=== PATIENT | female | born 1990 | race Caucasian/White ===

== ENCOUNTER 2019-02-20 12:04 | Emergency (ER) | payer BC ==
[2019-02-20 12:48] VITALS: BP 118/74
--- NOTE | 2019-02-20 12:57 | UC ---
General HPI - HPI Summary HPI Summary: picked up daughter about 2 hours ago and got a sudden swelling and bruising to the back of her R thumb. denies injury. swelling is resolving. no blood thinner use. - History of Current Complaint Chief Complaint: UCGeneralIllness Stated Complaint: RIGHT THUMB PAIN Time Seen by Provider: 02/20/19 12:44 Hx Obtained From: Patient Hx Last Menstrual Period: 02/18/19 Onset/Duration: Sudden Onset Pain Intensity: 7 Associated Signs & Symptoms: Negative: Weakness - Allergy/Home Medications Allergies/Adverse Reactions: Allergies Allergy/AdvReac Type Severity Reaction Status Date / Time No Known Allergies Allergy Verified 02/20/19 12:49 Home Medications: Home Medications Cetirizine HCl [Zyrtec] 1 tab PO DAILY 02/20/19 [History Confirmed 02/20/19] Fluticasone-Salmeterol 500-50* [Advair Diskus 500-50*] 1 puff INH DAILY [History Confirmed 02/20/19] QUEtiapine TAB* [Seroquel 25 MG TAB*] 12.5 mg PO BEDTIME 02/20/19 [History Confirmed 02/20/19] Venlafaxine TAB (NF) [Effexor TAB (NF)] 3 tab PO DAILY 02/20/19 [History Confirmed 02/20/19] lamoTRIgine [Lamotrigine] 3 tab PO BID 02/20/19 [History Confirmed 02/20/19] PMH/Surg Hx/FS Hx/Imm Hx - Additional Past Medical History Additional PMH: allergies Respiratory History: Asthma Psychological History: Depression - Surgical History Surgical History: Yes Surgery Procedure, Year, and Place: L knee ACL and meniscal repair. R knee patella tendon repair. T&A. wisdom teeth - Family History Known Family History: Positive: Non-Contributory - Social History Lives: With Family Alcohol Use: None Substance Use Type: None Smoking Status (MU): Never Smoked Tobacco Review of Systems All Other Systems Reviewed And Are Negative: No Constitutional: Negative: Fever Musculoskeletal: Negative: Decreased ROM Neurological: Negative: Weakness, Paresthesia, Numbness Physical Exam Triage Information Reviewed: Yes Appearance: Well-Appearing Vital Signs: Initial Vital Signs Temp 97.2 F 02/20/19 12:43 Pulse 88 02/20/19 12:43 Resp 18 02/20/19 12:43 BP 118/74 02/20/19 12:43 Pulse Ox 98 02/20/19 12:43 Vital Signs Reviewed: Yes Respiratory: Positive: No accessory muscle use Cardiovascular: Positive: RRR Musculoskeletal: Positive: Other: - R hand: slight swelling and brusing over dorsal proximal thumb. area mildly tender. rest of hand unremarkable. all of hand has full s/v/m function including against resistance with the R thumb. Neurological: Positive: Alert Psychological: Positive: Age Appropriate Behavior Skin Exam: Normal Skin: Negative: Rashes Course/Dx - Differential Dx - Multi-Symptom Differential Diagnoses: Other - no concern for fx, infection or tendon rupture. no ligament instability. - Diagnoses Provider Diagnosis: Hematoma Discharge - Sign-Out/Discharge Documenting (check all that apply): Patient Departure All imaging exams completed and their final reports reviewed: No Studies - Discharge Plan Condition: Stable Disposition: HOME Patient Education Materials: Hematoma (ED) Referrals: Kavita Marrero PA [Primary Care Provider] - If Needed - Billing Disposition and Condition Condition: STABLE Disposition: Home
== END 2019-02-20 13:07 | disposition home or self-care (01) ==
LOC: UCCORT 12:04
DX: S60.011A Contusion of right thumb without damage to nail, initial encounter (principal); X50.0XXA Overexertion from strenuous movement or load, initial encounter; Y93.89 Activity, other specified; Y92.9 Unspecified place or not applicable; J45.909 Unspecified asthma, uncomplicated; F32.9 Major depressive disorder, single episode, unspecified
CPT/HCPCS: 99201; G0463